=== PATIENT | male | born 1980 | race Two or more races ===

== ENCOUNTER 2017-09-26 02:07 | Emergency (ER) | payer BC, OTHER ==
[2017-09-26] MEDS ORDERED: Metoclopramide 10 MG/2 ML SDV IVPUSH ONE (02:21)
[2017-09-26] MEDS ORDERED: HYDROmorphone 0.5 MG/0.5 ML SYRINGE IVPUSH ONE (02:21)
--- NOTE | 2017-09-26 02:26 | EDM.PDOC ---
ED HPI GENERAL MEDICAL PROBLEM - General Chief Complaint: Back Pain or Injury Stated Complaint: LOW BACK PAIN/VOMITING Time Seen by Provider: 09/26/17 02:21 Source of Information: Reports: Patient, Family (spouse) History Limitations: Reports: No Limitations - History of Present Illness INITIAL COMMENTS - FREE TEXT/NARRATIVE: 37-year-old male reports awakening about midnight with severe right flank pain rating slightly into the right upper abdomen. It caused him to vomit times one of partially digested food and bile. Since that he's had persistent severe pain strong colicky component. Has a strong feeling of need to defecate and void but is unable to do so most times. Has not no cine blood in his urine. Has a remote history of bilateral renal stones about 12 years ago. Rates current pain is 10 out of 10. No previous abdominal surgery. Onset: Today Onset Date: 09/26/17 Onset Time: 00:00 Duration: Hour(s): Location: Reports: Back (Right flank pain radiating around slightly to the right upper abdomen.) Quality: Reports: Ache, Sharp, Stabbing, Throbbing Severity: Severe Improves with: Reports: None (Current pain 10 out of 10) Worsens with: Reports: None Context: Denies: Activity, Exercise, Lifting, Sick Contact, Trauma, Other Associated Symptoms: Reports: Nausea/Vomiting (Vomited once at the time of the pain started.). 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.) Lower Back Pain Score (Numeric/FACES): 8 - Related Data Allergies Allergy/AdvReac Type Severity Reaction Status Date / Time No Known Allergies Allergy Verified 09/26/17 02:14 Home Meds: Home Meds Hydrochlorothiazide 25 mg PO DAILY 04/08/14 [History] Lisinopril 40 mg PO DAILY 04/08/14 [History] Tamsulosin HCl [Flomax] 0.4 mg PO DAILY #4 cap.er.24h 09/26/17 [Rx] oxyCODONE HCl/Acetaminophen [Percocet 5-325 mg Tablet] 1 - 2 each PO Q4H PRN # 12 tablet 09/26/17 [Rx] Past Medical History Cardiovascular History: Reports: Hypertension Genitourinary History: Reports: Renal Calculus Social & Family History - Tobacco Use Smoking Status *Q: Never Smoker Second Hand Smoke Exposure: No - Recreational Drug Use Recreational Drug Use: No - Living Situation & Occupation Living situation: Reports: Occupation: Employed ED ROS GENERAL - Review of Systems Review Of Systems: See Below Constitutional: Reports: No Symptoms HEENT: Reports: No Symptoms Respiratory: Reports: No Symptoms Cardiovascular: Reports: No Symptoms Endocrine: Reports: No Symptoms GI/Abdominal: Reports: Abdominal Pain : Reports: Flank Pain (Some right upper quadrant abdominal discomfort but mostly the pain is in his right flank. Right flank pain awoke him from sleep at midnight tonight.), Frequency (Feels a need to void but often is unable to pass more than a few drops of urine.) Musculoskeletal: Reports: Back Pain Skin: Reports: No Symptoms (Right flank pain) Neurological: Reports: No Symptoms ED EXAM,LOWER BACK PAIN/INJURY - Physical Exam Exam: See Below Exam Limited By: No Limitations General Appearance: Alert, WD/WN, Moderate Distress Eye Exam: Bilateral Eye: Normal Inspection (No jaundice.) Respiratory/Chest: No Respiratory Distress, Lungs Clear, Normal Breath Sounds, No Accessory Muscle Use Cardiovascular: Normal Peripheral Pulses, Regular Rate, Rhythm, No Edema, No Gallop, No Murmur, No Rub, Tachycardia (Resting heart rate 100/m) GI/Abdominal: Distended (The abdomen is distended and quite firm to palpation. No localized areas of pain or peritonitis.), Abnormal Bowel Sounds (Fairly quiescent bowel sounds.) (Male) Exam: No Hernia Back Exam: CVA Tenderness (R) (Moderate) Extremities: Normal Inspection, Normal Range of Motion, Non-Tender, No Pedal Edema Neurological: Alert, Normal Mood/Affect, Normal Dorsiflexion, CN II-XII Intact, Oriented x 3 Psychiatric: Normal Affect, Normal Mood Skin Exam: Warm, Dry, Intact, Normal Color, No Rash Course - Vital Signs Last Recorded V/S: Last Vital Signs Temp 35.7 C 09/26/17 02:11 Pulse 100 09/26/17 02:11 Resp 17 09/26/17 02:11 BP 178/107 H 09/26/17 02:11 Pulse Ox 97 09/26/17 02:11 - Orders/Labs/Meds Orders: Active Orders 24 hr Category Date Time Status Abdomen Pelvis wo Cont [CT] Stat Exams 09/26/17 02:22 Taken URINALYSIS W/MICROSCOPIC [UA W/MICROSCOPIC] [URIN] Stat Lab 09/26/17 02:22 Ordered Meds: Medications Discontinued Medications Generic Name Dose Route Start Last Admin Trade Name Gwendolyn PRN Reason Stop Dose Admin Hydromorphone HCl 1 mg 09/26/17 02:21 09/26/17 02:28 Dilaudid IVPUSH 09/26/17 02:22 1 mg ONETIME ONE Administration Sodium Chloride 1,000 mls @ 150 mls/hr 09/26/17 02:30 09/26/17 02:28 Normal Saline IV 150 mls/hr ASDIRECTED SYDNI Administration Ketorolac Tromethamine 30 mg 09/26/17 02:30 09/26/17 02:32 Toradol IVPUSH 30 mg ONETIME SYDNI Administration Metoclopramide HCl 10 mg 09/26/17 02:21 09/26/17 02:27 Reglan IVPUSH 09/26/17 02:22 10 mg ONETIME ONE Administration Tamsulosin HCl 0.4 mg 09/26/17 02:57 09/26/17 03:10 Flomax PO 09/26/17 02:58 0.4 mg ONETIME ONE Administration - Radiology Interpretation Free Text/Narrative:: 37-year-old male presents the ED with acute onset of right flank pain that woke him from sleep about midnight. Associated nausea and vomiting 1. Pain is constant with a strong colicky component. Radiates into his right upper abdomen but not down to the groin. Does have a constant feeling of need to void but is often unable to do so. Patient has a history of remote renal lithiasis on both sides about 12 years ago. They passed on their own. Plan IV normal saline 150 mils per hour. Dilaudid 1 mg IV with Reglan 10 mg IV and Toradol 30 mg IV for pain relief. CT scan of the abdomen and pelvis to be done per renal protocol. Urinalysis if one becomes available. - Re-Assessments/Exams Free Text/Narrative Re-Assessment/Exam: 09/26/17 02:56 pain is gone at present. CT of the abdomen and pelvis has been performed. There is mild dilatation of the right ureter and renal pelvis. There appears to be a very small 1 mm stone partially two thirds down the ureter. No other stones are identified in either kidney that should be problematic in the future. Liver appears normal with no gallstones in the gallbladder. Pancreas and spleen appear normal and he does have a moderate sized hiatal hernia. There is a fair amount of stool throughout the entire right colon particularly in the right side and transverse colon. Will monitor for the next 20 minutes or so to make sure the pain is under control before discharging home. He'll be discharged home with urinary strainer. Percocet 5/325 milligram tabs one or 2 every 4-6 hours needed for pain relief. Flomax tab --0.4 mg once daily for the next 4 days or until stone is passed. 09/26/17 04:25 [facility]. The med report is now available. They did not identify any renal or ureteric calculi. I believe that he was simply missed because it is very small. There is mild dilatation of the upper ureter on the right side. Little 1 mm stone is present approximately at the junction of the middle and lower ureter. There is a moderate amount of stool throughout the right hemicolon and transverse colon without any signs of diverticulitis. I agree with scattered mesenteric lymph nodes with haziness in the mesenteric fat in the central mesentery but I felt it was just where all of the lymphatics were coming out from patient showed no signs or symptoms of recent peritonitis or abdominal pain. His history was clear-cut for renal colic with acute onset of flank pain nausea vomiting and pain into the upper abdomen. Fortunately he never did pass his urine was in the ED to confirm hematuria. No change in treatment plan based on this report. Departure - Departure Time of Disposition: 03:15 Disposition: Home, Self-Care 01 Condition: Fair Clinical Impression: Renal colic on right side - Discharge Information Prescriptions: oxyCODONE HCl/Acetaminophen [Percocet 5-325 mg Tablet] 1 - 2 each PO Q4H PRN # 12 tablet PRN Reason: pain relief. Tamsulosin HCl [Flomax] 0.4 mg PO DAILY #4 cap.er.24h Instructions: Renal Colic, [id number] Referrals: Saroj Polo MD [Primary Care Provider] - Forms: ED Department Discharge Additional Instructions: Evaluation the emergency room today in regards to awakening with severe pain right flank that caused nausea and vomiting. Pain is characteristic of kidney stone presentation. You're treated in the ED with IV fluids. Toradol 30 mg IV with Reglan 10 mg IV and Dilaudid 1 mg IV for acute pain relief. CT scan of the abdomen pelvis performed per renal protocol reveals a 1-1.5 mm stone in the lower right ureter proximal be 5 inches above the bladder. Therefore this stone has a ways to go before it passes into the bladder which time he would have no further pain. This is likely to occur within the next 12-48 hours. Drink plenty of fluids. Strain urine until stone is identified to have passed. Percocet tablets 5/3/25 milligrams one or 2 every 4-6 hours needed for relief of recurrent renal colic pain. - My Orders Last 24 Hours: My Active Orders 09/26/17 02:22 Abdomen Pelvis wo Cont [CT] Stat URINALYSIS W/MICROSCOPIC [UA W/MICROSCOPIC] [URIN] Stat - Assessment/Plan Last 24 Hours: My Active Orders 09/26/17 02:22 Abdomen Pelvis wo Cont [CT] Stat URINALYSIS W/MICROSCOPIC [UA W/MICROSCOPIC] [URIN] Stat
[2017-09-26] MEDS ORDERED: Ketorolac 30 MG/ML SDV IVPUSH SCH (02:30)
[2017-09-26] MEDS ORDERED: Sodium Chloride 0.9% 1,000 ML IV SCH (02:30)
[2017-09-26] MEDS ORDERED: Tamsulosin 0.4 MG Cap.ER PO ONE (02:57)
--- NOTE | 2017-09-26 08:30 | CT ---
CT abdomen and pelvis Technique: Multiple axial sections were obtained from above the dome of the diaphragm inferiorly through the pubic symphysis. Intravenous and oral contrast was not utilized. Study has been performed as a ureteral stone protocol. Comparison: No previous study is available. Findings: Kidneys show no abnormal calcifications. No ureteral dilatation or ureteral stone is seen. No bladder calculi are seen. Visualized lung bases are clear. Liver shows diminished density compatible with fatty infiltration. Spleen shows no focal abnormality. Spleen size is minimally increased at 14.4 cm in length. Adrenal glands show no nodule. Pancreas is within normal limits. Gallbladder contains no calcified gallstones. Aorta shows no aneurysmal dilatation. Small mesenteric lymph nodes are seen. Minimal haziness within the central mesentery is seen. No pelvic mass or adenopathy is seen. No free fluid or inflammatory change is seen. Appendix is seen which appears normal in size. Bone window settings were reviewed which appear within normal limits for the patient's age. Impression: 1. Haziness within the mesentery. This can be seen as a normal variant as well as with inflammatory change from mesenteritis. 2. Spleen size slightly enlarged with length of 14.4 cm. 3. No renal calculi, ureteral dilatation or ureteral stone is seen. 4. Fatty infiltration within the liver. Diagnostic code #3 Agree with preliminary report issued by [facility] ([facility] preliminary report dictated on 09/26/17, 4:49 AM Central Time)
== END 2017-09-26 03:22 | disposition home or self-care (01) ==
LOC: JD.ED 02:07
DX: N23 Unspecified renal colic (principal); Z79.899 Other long term (current) drug therapy
CPT/HCPCS: 74176; 96361; 96374; 96375; 99284; A9270; J1170; J1885; J2765; J7040

== ENCOUNTER 2020-02-15 11:05 | Emergency (ER) | payer OTHER ==
[2020-02-15] MEDS ORDERED: Ondansetron 4 MG/2 ML SDV IVPUSH ONE (11:19)
[2020-02-15] MEDS ORDERED: Ketorolac 30 MG/ML SDV IVPUSH ONE (11:19)
[2020-02-15] MEDS ORDERED: HYDROmorphone 0.5 MG/0.5 ML Syringe IVPUSH ONE ×2 (11:19→13:08)
[2020-02-15] MEDS ORDERED: Sodium Chloride 0.9% 10 ML Syringe FLUSH PRN (11:20)
[2020-02-15] MEDS ORDERED: Sodium Chloride 0.9% 1,000 ML IV SCH (11:30)
--- NOTE | 2020-02-15 11:37 | EDM.PDOC ---
ED HPI GENERAL MEDICAL PROBLEM - General Chief Complaint: Flank Pain Stated Complaint: LOW BACK PAIN AND SIDE PAIN Time Seen by Provider: 02/15/20 11:14 Source of Information: Reports: Patient History Limitations: Reports: No Limitations - History of Present Illness INITIAL COMMENTS - FREE TEXT/NARRATIVE: 39-year-old male presents to the emergency department with complaints of a 2-day history of right flank pain radiating to the right lateral abdomen as well as dark, concentrated urine. He describes the pain as constant with intermittent twinges of worsening pain. He does have a history of kidney stones with the last being in 2018. He states he has been using heavy equipment that rides quite rough at work prior to the onset of symptoms. He denies any fever, chills, nausea, vomiting, or diarrhea. Right Flank Pain Score (Numeric/FACES): 8 - Related Data Allergies Allergy/AdvReac Type Severity Reaction Status Date / Time No Known Allergies Allergy Verified 02/15/20 11:16 Home Meds: Home Meds Lisinopril 40 mg PO DAILY 04/08/14 [History] Cyclobenzaprine [Flexeril] 10 mg PO Q8H PRN #10 tab 02/15/20 [Rx] Naproxen [Naprosyn] 500 mg PO Q12HR PRN #10 tab 02/15/20 [Rx] metFORMIN [Glucophage XR] 500 mg PO BID 02/15/20 [History] Past Medical History HEENT History: Reports: Impaired Vision Cardiovascular History: Reports: Hypertension Genitourinary History: Reports: Renal Calculus Endocrine/Metabolic History: Reports: Diabetes, Type II, Obesity/BMI 30+ Social & Family History - Family History Family Medical History: Noncontributory - Tobacco Use Smoking Status *Q: Former Smoker Used Tobacco, but Quit: Yes Month/Year Tobacco Last Used: 04/2009 - Caffeine Use Caffeine Use: Reports: Coffee - Recreational Drug Use Recreational Drug Use: No - Living Situation & Occupation Living situation: Reports: Occupation: Employed ED ROS GENERAL - Review of Systems Review Of Systems: See Below Constitutional: Reports: No Symptoms. Denies: Fever, Chills, Weakness, Fatigue HEENT: Reports: No Symptoms Respiratory: Reports: No Symptoms Cardiovascular: Reports: No Symptoms Endocrine: Reports: No Symptoms GI/Abdominal: Reports: No Symptoms : Reports: Flank Pain, Other (Dark urine) Musculoskeletal: Reports: No Symptoms Skin: Reports: No Symptoms Neurological: Reports: No Symptoms Psychiatric: Reports: No Symptoms Hematologic/Lymphatic: Reports: No Symptoms Immunologic: Reports: No Symptoms ED EXAM, RENAL/ - Physical Exam Exam: See Below Exam Limited By: No Limitations General Appearance: Alert, WD/WN, No Apparent Distress Respiratory/Chest: No Respiratory Distress, Lungs Clear, Normal Breath Sounds, No Accessory Muscle Use, Chest Non-Tender Cardiovascular: Normal Peripheral Pulses, Regular Rate, Rhythm, No Edema, No Gallop, No JVD, No Murmur, No Rub GI/Abdominal: Normal Bowel Sounds, Soft, Non-Tender, No Organomegaly, No Distention, No Abnormal Bruit, No Mass Back Exam: Normal Inspection, Full Range of Motion, CVA Tenderness (R) Neurological: Alert, Oriented, CN II-XII Intact, Normal Cognition, Normal Gait, Normal Reflexes, No Motor/Sensory Deficits Psychiatric: Normal Affect, Normal Mood Skin Exam: Warm, Dry, Intact, Normal Color, No Rash Course - Vital Signs Last Recorded V/S: Last Vital Signs Temp 97.6 F 02/15/20 11:13 Pulse 78 02/15/20 11:13 Resp 15 02/15/20 11:13 BP 181/110 H 02/15/20 11:13 Pulse Ox 99 02/15/20 11:13 - Orders/Labs/Meds Orders: Active Orders 24 hr Category Date Time Status Peripheral IV Care [RC] . DIRECTED Care 02/15/20 11:20 Active Sodium Chloride 0.9% [Normal Saline] 1,000 ml Med 02/15/20 11:30 Active IV ASDIRECTED Sodium Chloride 0.9% [Saline Flush] Med 02/15/20 11:20 Active 10 ml FLUSH ASDIRECTED PRN Peripheral IV Insertion Adult [OM.PC] Stat Oth 02/15/20 11:20 Ordered Medication Orders Sodium Chloride (Normal Saline) 1,000 mls @ 999 mls/hr IV ASDIRECTED SYDNI Last Admin: 02/15/20 11:36 Dose: 999 mls/hr Documented by: NORM Sodium Chloride (Saline Flush) 10 ml FLUSH ASDIRECTED PRN PRN Reason: Keep Vein Open Last Admin: 02/15/20 11:41 Dose: 10 ml Documented by: NORM Labs: Laboratory Tests 02/15/20 02/15/20 02/15/20 Range/Units 11:40 11:40 12:52 WBC 8.42 (4.23-9.07) K/mm3 RBC 5.22 (4.63-6.08) M/mm3 Hgb 14.6 (13.7-17.5) gm/dl Hct 42.5 (40.1-51.0) % MCV 81.4 (79.0-92.2) fl MCH 28.0 (25.7-32.2) pg MCHC 34.4 (32.2-35.5) g/dl RDW Std Deviation 36.7 (35.1-43.9) fL Plt Count 298 (163-337) K/mm3 MPV 10.6 (9.4-12.3) fl Neut % (Auto) 61.1 (34.0-67.9) % Lymph % (Auto) 29.2 (21.8-53.1) % [place] % (Auto) 7.8 (5.3-12.2) % Eos % (Auto) 1.4 (0.8-7.0) Baso % (Auto) 0.4 (0.1-1.2) % Neut # (Auto) 5.14 (1.78-5.38) K/mm3 Lymph # (Auto) 2.46 (1.32-3.57) K/mm3 [place] # (Auto) 0.66 (0.30-0.82) K/mm3 Eos # (Auto) 0.12 (0.04-0.54) K/mm3 Baso # (Auto) 0.03 (0.01-0.08) K/mm3 Sodium 140 (136-145) mEq/L Potassium 3.8 (3.5-5.1) mEq/L Chloride 102 (98-107) mEq/L Carbon Dioxide 30 (21-32) mEq/L Anion Gap 11.8 (5-15) BUN 9 (7-18) mg/dL Creatinine 0.8 (0.7-1.3) mg/dL Est Cr Clr Drug Dosing 122.74 mL/min Estimated GFR (MDRD) > 60 (>60) mL/min BUN/Creatinine Ratio 11.3 L (14-18) Glucose 216 H (74-106) mg/dL Calcium 8.7 (8.5-10.1) mg/dL Total Bilirubin 0.5 (0.2-1.0) mg/dL AST 30 (15-37) U/L ALT 65 H (16-63) U/L Alkaline Phosphatase 107 (46-116) U/L C-Reactive Protein 1.6 H* (<1.0) mg/dL Total Protein 7.6 (6.4-8.2) g/dl Albumin 3.6 (3.4-5.0) g/dl Globulin 4.0 gm/dL Albumin/Globulin Ratio 0.9 L (1-2) Urine Color Yellow (Yellow) Urine Appearance Clear (Clear) Urine pH 7.0 (5.0-8.0) Ur Specific [place] 1.025 (1.005-1.030) Urine Protein Negative (Negative) Urine Glucose (UA) 2+ H (Negative) Urine Ketones Negative (Negative) Urine Occult Blood Negative (Negative) Urine Nitrite Negative (Negative) Urine Bilirubin Negative (Negative) Urine Urobilinogen 0.2 (0.2-1.0) Ur Leukocyte Esterase Negative (Negative) Urine RBC 0-5 (0-5) /hpf Urine WBC 0-5 (0-5) /hpf Ur Epithelial Cells 0-5 (0-5) /hpf Amorphous Sediment Moderate H (NOT SEEN) /hpf Urine Bacteria Not seen (FEW) /hpf Urine Mucus Moderate H (FEW) /hpf Meds: Medications Generic Name Dose Route Start Last Admin Trade Name Freq PRN Reason Stop Dose Admin Sodium Chloride 1,000 mls @ 999 mls/hr 02/15/20 11:30 02/15/20 11:36 Normal Saline IV 999 mls/hr ASDIRECTED SYDNI Administration Sodium Chloride 10 ml 02/15/20 11:20 02/15/20 11:41 Saline Flush FLUSH 10 ml ASDIRECTED PRN Administration Keep Vein Open Discontinued Medications Generic Name Dose Route Start Last Admin Trade Name Freq PRN Reason Stop Dose Admin Hydromorphone HCl 0.5 mg 02/15/20 11:19 02/15/20 11:41 Dilaudid IVPUSH 02/15/20 11:20 0.5 mg ONETIME ONE Administration Hydromorphone HCl 0.5 mg 02/15/20 13:08 02/15/20 13:12 Dilaudid IVPUSH 02/15/20 13:09 0.5 mg ONETIME ONE Administration Ketorolac Tromethamine 30 mg 02/15/20 11:19 02/15/20 11:40 Toradol IVPUSH 02/15/20 11:20 30 mg ONETIME ONE Administration Ondansetron HCl 4 mg 02/15/20 11:19 02/15/20 11:41 Zofran IVPUSH 02/15/20 11:20 4 mg ONETIME ONE Administration - Re-Assessments/Exams Free Text/Narrative Re-Assessment/Exam: 02/15/20 13:24 Hematology was grossly unremarkable. Urinalysis was negative for blood or infection. CT scan of the abdomen pelvis was negative for any acute abnorma lities. There was no renal calculi ureteral dilatation, or ureteral stone seen. Appendix was normal. 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 We will write a prescription for Naprosyn and Flexeril for pain. Discharge instructions as documented. Departure - Departure Time of Disposition: 13:24 Disposition: Home, Self-Care 01 Condition: Good Clinical Impression: Back pain Qualifiers: Back pain location: low back pain Chronicity: acute Back pain laterality: right Sciatica presence: unspecified whether sciatica present Qualified Code(s): M54.5 - Low back pain - Discharge Information *PRESCRIPTION DRUG MONITORING PROGRAM REVIEWED*: No *COPY OF PRESCRIPTION DRUG MONITORING REPORT IN PATIENT BETTY: No Prescriptions: Cyclobenzaprine [Flexeril] 10 mg PO Q8H PRN #10 tab PRN Reason: Muscle Spasm Naproxen [Naprosyn] 500 mg PO Q12HR PRN #10 tab PRN Reason: Pain Instructions: Acute Back Pain, Adult Referrals: Saroj Polo MD [Primary Care Provider] - Forms: ED Department Discharge Additional Instructions: You were seen in the emergency department for rights sided back pain. Your workup included blood work, CT scan of your abdomen and pelvis, and a urinalysis. The results of your workup were normal. There is no evidence of a kidney stone or infection. 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 You have been provided a prescription for Naprosyn for pain and inflammation, as well as Flexeril which is a muscle relaxer. Uses medications as prescribed. Be aware that Flexeril may cause sedation so do not drive or work until you know how the medication affects you. You may apply heat to the area as needed for comfort. If your symptoms are not improving over the next few days, you may follow-up in the clinic with your primary care provider. Return to the ER for worsening symptoms. Sepsis Event Note (ED) - Evaluation Sepsis Screening Result: No Definite Risk - Focused Exam Vital Signs: Vital Signs Temp Pulse Resp BP Pulse Ox 02/15/20 11:13 97.6 F 78 15 181/110 H 99 - My Orders Last 24 Hours: My Active Orders 02/15/20 11:20 Peripheral IV Care [RC] . DIRECTED Sodium Chloride 0.9% [Saline Flush] 10 ml FLUSH ASDIRECTED PRN Peripheral IV Insertion Adult [OM.PC] Stat 02/15/20 11:30 Sodium Chloride 0.9% [Normal Saline] 1,000 ml IV ASDIRECTED - Assessment/Plan Last 24 Hours: My Active Orders 02/15/20 11:20 Peripheral IV Care [RC] . DIRECTED Sodium Chloride 0.9% [Saline Flush] 10 ml FLUSH ASDIRECTED PRN Peripheral IV Insertion Adult [OM.PC] Stat 02/15/20 11:30 Sodium Chloride 0.9% [Normal Saline] 1,000 ml IV ASDIRECTED
--- NOTE | 2020-02-15 12:26 | CT ---
CT abdomen and pelvis Technique: Multiple axial sections were obtained from above the dome of the diaphragm inferiorly through the pubic symphysis. Intravenous and oral contrast was not utilized. Study has been performed as a ureteral stone protocol. Comparison: Previous CT abdomen and pelvis study of 09/26/17. Findings: Kidneys show no abnormal calcifications. No ureteral dilatation or ureteral stone is seen. Spleen size at the upper limits of normal at 13.7 cm. This is stable from prior exam and therefore believed to be incidental. Visualized lung bases showed nothing acute. Liver contains no focal parenchymal abnormality. Adrenal glands show no nodule. Pancreas shows no discrete abnormality. Gallbladder contains no calcified gallstones. Aorta shows no aneurysm. Haziness is noted within the central mesentery which is a stable finding and therefore believed to be incidental. Appendix is seen which is normal in size. No pelvic mass or adenopathy is seen. No free fluid or acute inflammatory change is appreciated. Bone window settings were reviewed which appear within normal limits for the patient's age. Impression: 1. No renal calculi, ureteral dilatation or ureteral stone is seen. 2. Appendix appears normal in size. 3. Other findings as noted above believed to be stable from previous exam. Nothing acute is appreciated. Diagnostic code #2 This report was dictated in MDT
== END 2020-02-15 14:00 | disposition home or self-care (01) ==
LOC: JD.ED 11:05
DX: M54.5 Low back pain (principal); R10.9 Unspecified abdominal pain; I10 Essential (primary) hypertension; E11.9 Type 2 diabetes mellitus without complications; E66.9 Obesity, unspecified; Z87.891 Personal history of nicotine dependence; Z79.899 Other long term (current) drug therapy; Z68.39 Body mass index [BMI] 39.0-39.9, adult
CPT/HCPCS: 36415; 74176; 80053; 81001; 85025; 86140; 96361; 96374; 96375; 96376; 99284; J1170; J1885; J2405; J7030; 99283

== ENCOUNTER 2022-06-21 07:02 | Emergency (ER) | payer BC, OTHER ==
[2022-06-21] MEDS ORDERED: Ondansetron 4 MG/2 ML SDV IVPUSH ONE (07:29)
[2022-06-21] MEDS ORDERED: Sodium Chloride 0.9% 10 ML Syringe FLUSH PRN (07:29)
[2022-06-21] MEDS ORDERED: HYDROmorphone 0.5 MG/0.5 ML Syringe IVPUSH ONE (07:30)
[2022-06-21] MEDS ORDERED: Ketorolac 30 MG/ML SDV IVPUSH ONE (07:30)
[2022-06-21] MEDS ORDERED: Sodium Chloride 0.9% 1,000 ML IV SCH (07:30)
[2022-06-21] MEDS ORDERED: cefTRIAXone 2 GM in Sodium Chloride 0.9% 100 ML IV ONE (09:57)
== END 2022-06-21 11:13 | disposition home or self-care (01) ==
LOC: JD.ED 07:02
DX: N39.0 Urinary tract infection, site not specified (principal); I10 Essential (primary) hypertension; E11.9 Type 2 diabetes mellitus without complications; E66.9 Obesity, unspecified; Z68.39 Body mass index [BMI] 39.0-39.9, adult; Z79.899 Other long term (current) drug therapy
CPT/HCPCS: 36415; 74176; 80053; 81001; 83690; 85025; 87086; 87088; 87186; 96361; 96365; 96375; 99284; J0696; J1170; J1885; J2405; J3490; J7030